=== PATIENT | female | born 1990 | race Caucasian/White ===

== ENCOUNTER 2024-11-04 00:31 | Emergency (ER) | payer MEDICAID | END 2024-11-04 02:58 | disposition home or self-care (01) | LOC: ER 00:33 | DX: T67.5XXA Heat exhaustion, unspecified, initial encounter (principal); Z53.21 Procedure and treatment not carried out due to patient leaving prior to being seen by health care provider; X30.XXXA Exposure to excessive natural heat, initial encounter; Y93.89 Activity, other specified; Y92.89 Other specified places as the place of occurrence of the external cause; Y99.8 Other external cause status ==